=== PATIENT | male | born 1950 | race Caucasian/White ===

== ENCOUNTER 2018-05-30 14:53 | Emergency (ER) | payer MEDICARE, BC ==
[~2018-05-30] VITALS: Ht 177.8 cm; Wt 113.4 kg
[2018-05-30] MEDS ORDERED: NEBI5 (14:59)
[2018-05-30] MEDS ORDERED: LOVA40 (14:59)
[2018-05-30] MEDS ORDERED: ASPI81CH PO (14:59)
== END 2018-05-30 16:41 | disposition home or self-care (01) ==
LOC: ER 14:53
DX: S86.112A Strain of other muscle(s) and tendon(s) of posterior muscle group at lower leg level, left leg, initial encounter (principal); F17.200 Nicotine dependence, unspecified, uncomplicated; Z79.899 Other long term (current) drug therapy; Z79.82 Long term (current) use of aspirin; X58.XXXA Exposure to other specified factors, initial encounter
CPT/HCPCS: 93971; 99283-25